=== PATIENT | male | born 1965 ===

== ENCOUNTER 2016-12-21 13:23 | Observation (INO) | payer MEDICAID ==
[2016-12-21] MEDS ORDERED: Morphine 2 mg/ml ISec IVP STA (14:13)
[2016-12-21 14:45] LABS: BASO # 0.01 K/mm3 (0.0-2.0); BASO % 0.2 % (0.0-3.0); EOS # 0.1 (0.0-0.7); EOS % 1.7 % (1.5-5.0); GRAN # 4.55 (1.4-6.5); GRAN % 69.5 % (50.0-68.0); HEMOGLOBIN 14.1 gm/dL (14.0-18.0); LYMPH # 1.4 (1.2-3.4); LYMPH % 21.4 % (22.0-35.0); MEAN CELL VOLUME 91.1 fL (80.0-105.0); MEAN CORPUSCULAR HEMOGLOBIN 29.7 pg (25.0-35.0); MEAN CORPUSCULAR HGB CONC 32.6 g/dl (31.0-37.0); MEAN PLATELET VOLUME 11.1 fl (7.0-11.0); MONO # 0.5 (0.1-0.6); MONO % 7.2 % (1.0-6.0); PLATELET COUNT 172 10^3/uL (120.0-450.0); RBC 4.74 10^6/uL (3.5-6.1); RED CELL DISTRIBUTION WIDTH 13.4 % (11.5-14.5); WHITE BLOOD COUNT 6.5 10^3/ul (4.5-11.0)
--- NOTE | 2016-12-21 14:52 | ED PDOC ---
Arrival/HPI - General Chief Complaint: Upper Extremity Problem/Injury Time Seen by Provider: 12/21/16 13:53 Historian: Patient, Family - History of Present Illness Narrative History of Present Illness (Text): 12/21/16 14:05 Greg Cardona is a 51 year old male, whose past medical history includes hypertension, hypercholesterolema, and borderline diabetes mellitus, who presents to the Emergency department complaining of left shoulder pain since last night. Patient reports that he was showering when he suddenly felt dizzy and experienced a syncopal episode. He denies hitting his head upon the fall. He notes having a headache and began having chest pain this morning. Patient denies any shortness of breath, headache, nausea, vomiting, diarrhea, fever, chills, cough, visual changes, tongue biting, head injury or other complaints. PMD: Dr. Ruelas Time/Duration: Other (last night) Symptom Onset: Sudden Symptom Course: Unchanged Activities at Onset: Light (showering) Modifying Factors (Text): pain when rising left arm Context: Home Associated Symptoms (Text): headache and chest pain since this morning Past Medical History - Provider Review Nursing Documentation Reviewed: Yes - Infectious Disease Hx of Infectious Diseases: None - Cardiac Hx Cardiac Disorders: Yes Hx Hypertension: Yes - Pulmonary Hx Respiratory Disorders: No - Neurological Hx Neurological Disorder: Yes - HEENT Hx HEENT Disorder: No - Renal Hx Renal Disorder: No - Endocrine/Metabolic Hx Endocrine Disorders: No - Hematological/Oncological Hx Blood Disorders: No Hx AIDS: No - Integumentary Hx Dermatological Disorder: No - Musculoskeletal/Rheumatological Hx Musculoskeletal Disorders: Yes Hx Arthritis: Yes - Gastrointestinal Hx Gastrointestinal Disorders: No - Genitourinary/Gynecological Hx Genitourinary Disorders: No - Psychiatric Hx Psychophysiologic Disorder: No Hx Substance Use: No - Surgical History Hx Cataract Extraction: Yes (unknown year) - Anesthesia Hx Anesthesia: Yes Hx Anesthesia Reactions: No Hx Malignant Hyperthermia: No - Suicidal Assessment Feels Threatened In Home Enviroment: No Family/Social History - Physician Review Nursing Documentation Reviewed: Yes Family/Social History: Unknown Family HX Smoking Status: Never Smoked Hx Alcohol Use: No Hx Substance Use: No Allergies/Home Meds Allergies/Adverse Reactions: Allergies No Known Allergies Allergy (Verified 12/21/16 13:46) Home Medications: Home Meds Medication Instructions Recorded Confirmed Meclizine [Meclizine*] 25 mg PO TID 04/22/15 12/21/16 Lisinopril 20 mg PO DAILY 09/23/15 12/21/16 Atorvastatin [Lipitor] 20 mg PO HS 06/10/16 12/21/16 Butalb/Acetaminophen/Caffeine 1 cap PO Q6 PRN 06/10/16 12/21/16 [Zebutal 50-325-40 mg Capsule] Metoprolol Tartrate [Lopressor] 50 mg PO BID 06/10/16 12/21/16 Omeprazole 20 mg PO DAILY 06/10/16 12/21/16 Aspirin 81 mg PO DAILY 07/25/16 12/21/16 Review of Systems - Physician Review All systems were reviewed & negative as marked: Yes - Review of Systems Constitutional: Normal. absent: Fevers Eyes: absent: Vision Changes Respiratory: absent: SOB Cardiovascular: Chest Pain (since this morning), Syncope (last night while showering) Gastrointestinal: Normal. absent: Abdominal Pain, Diarrhea, Nausea, Vomiting Genitourinary Male: Normal Musculoskeletal: Other (left shoulder pain). absent: Back Pain Skin: Other (left shoulder bruise) Neurological: Headache, Dizziness. absent: Speech Changes Endocrine: Normal. absent: Diaphoresis Hemo/Lymphatic: Normal Psychiatric: Normal Physical Exam Vital Signs Reviewed: Yes Vital Signs Temp Pulse Resp BP Pulse Ox 12/21/16 16:04 65 18 142/86 97 12/21/16 13:51 98.0 F 70 18 150/104 H 96 Temperature: Afebrile Blood Pressure: Hypertensive Pulse: Regular Respiratory Rate: Normal Appearance: Positive for: Well-Appearing, Non-Toxic, Comfortable Pain Distress: None Mental Status: Positive for: Alert and Oriented X 3 - Systems Exam Head: Present: Atraumatic, Normocephalic Pupils: Present: PERRL Extroacular Muscles: Present: EOMI Conjunctiva: Present: Normal Mouth: Present: Moist Mucous Membranes Pharnyx: Present: Normal. No: ERYTHEMA, EXUDATE, TONSILS ENLARGED Neck: Present: Normal Range of Motion Respiratory/Chest: Present: Clear to Auscultation, Good Air Exchange. No: Respiratory Distress, Accessory Muscle Use Cardiovascular: Present: Regular Rate and Rhythm, Normal S1, S2. No: Murmurs Abdomen: Present: Normal Bowel Sounds. No: Tenderness, Distention, Peritoneal Signs Upper Extremity: Present: Other (There is a pressure erythema in the anterior L shoulder with tenderness laterally). No: Cyanosis, Edema Lower Extremity: Present: Normal Inspection. No: Edema Neurological: Present: GCS=15, CN II-XII Intact, Speech Normal Skin: Present: Warm, Dry, Normal Color. No: Rashes Psychiatric: Present: Alert, Oriented x 3, Normal Insight, Normal Concentration Medical Decision Making ED Course and Treatment: 12/21/16 14:05 Impression: 51 year old male with left shoulder pain and one syncopal episode. Differential Diagnosis included but are not limited to: syncope vs. vertigo / shoulder sprain vs fx / muscular vs acs Plan: -- EKG -- CXR -- Left shoulder x- ray -- Urinalysis -- Labs -- Morphine -- Reassess and disposition Progress notes: 12/21/16 16:47 EKG: NSR @ 64; no ST/T changes; normal intervals; normal axis. Patient with noted history with multiple risk factors for ACS. EKG is unremarkable and first set of CE is negative. Will need further observation on tele for evaluation and treatment of syncope and chest pain. X-ray shows no shoulder fx. - Lab Interpretations Lab Results: 12/21/16 14:25 12/21/16 14:25 Lab Results 12/21/16 14:50: Urine Color Yellow, Urine Appearance Clear, Urine pH 6.0, Ur Specific [place] 1.025, Urine Protein Negative, Urine Glucose (UA) Negative, Urine Ketones Negative, Urine Blood Negative, Urine Nitrate Negative, Urine Bilirubin Negative, Urine Urobilinogen 0.2, Ur Leukocyte Esterase Negative 12/21/16 14:25: PT 10.2, INR 0.94, APTT 28.2 12/21/16 14:25: Sodium 144, Potassium 3.8, Chloride 105, Carbon Dioxide 29, Anion Gap 14, BUN 19, Creatinine 0.9, Est GFR ( Amer) > 60, Est GFR (Non- Af Amer) > 60, Random Glucose 90, Calcium 9.5, Magnesium 2.1, Total Bilirubin 0.5, AST 24, ALT 32, Alkaline Phosphatase 91, Lactate Dehydrogenase 446, Total Creatine Kinase 220, Troponin I < 0.01, Total Protein 7.8, Albumin 4.1, Globulin 3.7, Albumin/Globulin Ratio 1.1, Lipase 44 12/21/16 14:25: WBC 6.5, RBC 4.74, Hgb 14.1, Hct 43.2, MCV 91.1, MCH 29.7, MCHC 32.6, RDW 13.4, Plt Count 172, MPV 11.1 H, Gran % 69.5 H, Lymph % (Auto) 21.4 L , Marion % (Auto) 7.2 H, Eos % (Auto) 1.7, Baso % (Auto) 0.2, Gran # 4.55, Lymph # 1.4, Marion # 0.5, Eos # 0.1, Baso # 0.01 I have reviewed the lab results: Yes - RAD Interpretation Radiology Orders: 12/21/16 14:08 CHEST TWO VIEWS (PA/LAT) [RAD] Stat 12/21/16 14:13 SHOULDER LEFT [RAD] Stat - Medication Orders Current Medication Orders: Discontinued Medications Morphine Sulfate (Morphine) 2 mg IVP STAT STA Stop: 12/21/16 14:14 Last Admin: 12/21/16 14:35 Dose: 2 mg - Scribe Statement The provider has reviewed the documentation as recorded by the Scribe 12/21/2016 Britt Galdamez All medical record entries made by the Scribe were at my direction and personally dictated by me. I have reviewed the chart and agree that the record accurately reflects my personal performance of the history, physical exam, medical decision making, and the department course for this patient. I have also personally directed, reviewed, and agree with the discharge instructions and disposition. Disposition/Present on Arrival - Present on Arrival Any Indicators Present on Arrival: No History of DVT/PE: No History of Uncontrolled Diabetes: No Urinary Catheter: No History of Decub. Ulcer: No History Surgical Site Infection Following: None - Disposition Have Diagnosis and Disposition been Completed?: Yes Diagnosis: Chest pain, Syncope Disposition: HOSPITALIZED Disposition Time: 16:05 Patient Plan: Observation, Telemetry Condition: FAIR
[2016-12-21 14:56] LABS: ALB/GLOB RATIO 1.1 (1.1-1.8); ALBUMIN 4.1 g/dL (3.0-4.8); ALT/SGPT 32 U/L (7-56); AST/SGOT 24 U/L (15-59); BLOOD UREA NITROGEN 19 mg/dL (7-21); CALCIUM 9.5 mg/dL (8.4-10.5); GFR AFRICAN-AMERICAN > 60; GFR NON-AFRICAN AMERICAN > 60; INR 0.94 (0.93-1.08); LIPASE 44 U/L (23-300); MAGNESIUM 2.1 mg/dL (1.7-2.2); PARTIAL THROMBOPLASTIN TIME 28.2 Seconds (23.7-30.8); PROTHROMBIN TIME 10.2 Seconds (9.9-11.8)
[2016-12-21 15:36] LABS: TROPONIN I < 0.01 ng/mL
[2016-12-21 15:43] LABS: URINE BILIRUBIN NEGATIVE (NEGATIVE); URINE BLOOD NEGATIVE (NEGATIVE); URINE GLUCOSE (UA) NEGATIVE (NEGATIVE); URINE LEUKOCYTE ESTERASE NEGATIVE Leu/uL (NEGATIVE); URINE NITRATE NEGATIVE (NEGATIVE); URINE PROTEIN NEGATIVE mg/dL (<30 mg/dL); URINE UROBILINOGEN 0.2 E.U./dL (<1 E.U./dL)
[2016-12-21 15:47] LABS: URINE APPEARANCE CLEAR (CLEAR); URINE COLOR YELLOW (YELLOW)
--- NOTE | 2016-12-21 17:48 | CP.PCM.HP ---
<MasoudDemetriushussein - Last Filed: 12/21/16 19:18> History of Present Illness - History of Present Illness History of Present Illness: This patient is a 51 year old male who presented the ER complaining of intermittent chest pain and left shoulder pain he stated began "a few days". The patient stated that while he was taking a shower he began to get dizzy, fell , and hit his shoulder. Patient stated that he did not lose consciousness but when asked again stated that he did lose consciousness. Patient describes the chest pain as sharp and non radiating. He rates the chest pain 4/10 while he rates the shoulder pain an 8/10. Patient denies any biting of the toungue at the time of the event. He states that no one witnessed the fall, but he is sure that he did not hit his head. When he went for a walk this afternoon, he began to have chest pain and worsening shoulder pain which prompted him to come to the ED. He denies any difficulty breathing, abdominal pain, bowel or urinary incontinence, muscle weakness, sensory loss, N/V/D, or constipation. Patient did complain of a headache. PMH - HLD, HTN, 2 CVA, Vertigo, Hydrocephaly w/ TRENCH DIGGER shunt. PSH - Hernia repair, and ankle surgery (1971) Allergies - NKDA Social - Denies Tobacco, illicit drugs, and alcohol. Patient is currently unemployed. FamHx - Denies Present on Admission - Present on Admission Any Indicators Present on Admission: No Review of Systems - Review of Systems All systems: reviewed and no additional remarkable complaints except - Cardiovascular Cardiovascular: As Per HPI - Respiratory Respiratory: As Per HPI - Gastrointestinal Gastrointestinal: As Per HPI - Musculoskeletal Additional comments: Shoulder pain Past Patient History - Infectious Disease Hx of Infectious Diseases: None - Past Medical History & Family History Past Medical History?: Yes - Past Social History Smoking Status: Never Smoked - CARDIAC Hx Cardiac Disorders: Yes Hx Hypertension: Yes - PULMONARY Hx Respiratory Disorders: No - NEUROLOGICAL Hx Neurological Disorder: Yes - HEENT Hx HEENT Problems: No - RENAL Hx Chronic Kidney Disease: No - ENDOCRINE/METABOLIC Hx Endocrine Disorders: No - HEMATOLOGICAL/ONCOLOGICAL Hx Blood Disorders: No Hx AIDS: No - INTEGUMENTARY Hx Dermatological Problems: No - MUSCULOSKELETAL/RHEUMATOLOGICAL Hx Musculoskeletal Disorders: Yes Hx Arthritis: Yes - GASTROINTESTINAL Hx Gastrointestinal Disorders: No - GENITOURINARY/GYNECOLOGICAL Hx Genitourinary Disorders: No - PSYCHIATRIC Hx Psychophysiologic Disorder: No Hx Substance Use: No - SURGICAL HISTORY Hx Cataract Extraction: Yes (unknown year) - ANESTHESIA Hx Anesthesia: Yes Hx Anesthesia Reactions: No Hx Malignant Hyperthermia: No Meds Allergies/Adverse Reactions: Allergies Allergy/AdvReac Type Severity Reaction Status Date / Time No Known Allergies Allergy Verified 12/21/16 13:46 Physical Exam - Constitutional Appears: Well, No Acute Distress - Head Exam Head Exam: ATRAUMATIC, NORMOCEPHALIC - Eye Exam Eye Exam: EOMI - Neck Exam Neck exam: Negative for: Lymphadenopathy - Respiratory Exam Respiratory Exam: Clear to Auscultation Bilateral, NORMAL BREATHING PATTERN. absent: Accessory Muscle Use, Decreased Breath Sounds, Rales, Rhonchi, Wheezes, Stridor - Cardiovascular Exam Cardiovascular Exam: RRR, +S1, +S2. absent: JVD, +S4, Systolic Murmur Additional comments: NO Carotid Bruit. Chest is tender to palpation - GI/Abdominal Exam GI & Abdominal Exam: Normal Bowel Sounds, Soft. absent: Tenderness - Extremities Exam Additional comments: Diffuse Shoulder pain. Tender to palpation at the AC joint and [place]romian. Loss of ROM and Pain with Internal rotation, flexion, and abduction. - Neurological Exam Neurological exam: Alert, CN II-XII Intact, Oriented x3 Results - Vital Signs Recent Vital Signs: Last Vital Signs Temp 98.0 F 12/21/16 13:51 Pulse 65 12/21/16 16:04 Resp 18 12/21/16 16:04 BP 142/86 12/21/16 16:04 Pulse Ox 97 12/21/16 16:04 - Labs Result Diagrams: 12/21/16 14:25 12/21/16 14:25 Assessment & Plan - Assessment and Plan (Free Text) Assessment: 51 year old male who presented with left shoulder pain and chest pain s/p dizziness and syncope. CXR on admission showed elevated left hemidiaphragm Plan: 1. Chest Pain -Serial EKG -Chest X-Ray -Rib Series B/L -Serial Troponins -Cardio Consult -CBC/CMP -Percocet -CT of Chest Abd 2. Vertigo with possible syncopal episode vs CVA vs Seizure (unlikely) -Head CT -Neuro Consult -HgbA1C -UDS -Q4 Neurochecks -Lipid panel 3. Shoulder Pain -Xray -Percocet -PT Miriam Meredith. PGY 1 Case seen, discussed, and reviewed with Attending. - Date & Time Date: 12/21/16 Time: 05:45 <Eli Warner - Last Filed: 12/23/16 06:02> Results - Vital Signs Recent Vital Signs: Last Vital Signs Temp 98.2 F 12/22/16 17:35 Pulse 64 12/22/16 17:35 Resp 16 12/22/16 17:35 BP 135/95 H 12/22/16 17:35 Pulse Ox 94 L 12/22/16 06:00 - Labs Result Diagrams: 12/22/16 07:46 12/22/16 07:46 Labs: Laboratory Results - last 24 hr 12/22/16 12/22/16 12/22/16 07:46 07:46 07:46 WBC 5.4 RBC 4.69 Hgb 14.1 Hct 42.6 MCV 90.8 MCH 30.1 MCHC 33.1 RDW 13.6 Plt Count 151 MPV 11.1 H Gran % 64.5 Lymph % (Auto) 25.3 Edgar % (Auto) 8.1 H Eos % (Auto) 1.7 Baso % (Auto) 0.4 Gran # 3.49 Lymph # 1.4 Edgar # 0.4 Eos # 0.1 Baso # 0.02 Sodium 141 Potassium 3.7 Chloride 102 Carbon Dioxide 31 Anion Gap 12 BUN 18 Creatinine 0.9 Est GFR ( Amer) > 60 Est GFR (Non-Af Amer) > 60 Random Glucose 90 Calcium 8.9 Total Bilirubin 0.7 AST 21 ALT 27 Alkaline Phosphatase 73 Troponin I Total Protein 7.0 Albumin 3.7 Globulin 3.3 Albumin/Globulin Ratio 1.1 Triglycerides 152 Cholesterol 169 LDL Cholesterol Direct 120 HDL Cholesterol 31 TSH 3rd Generation 1.29 12/22/16 10:00 WBC RBC Hgb Hct MCV MCH MCHC RDW Plt Count MPV Gran % Lymph % (Auto) Edgar % (Auto) Eos % (Auto) Baso % (Auto) Gran # Lymph # Edgar # Eos # Baso # Sodium Potassium Chloride Carbon Dioxide Anion Gap BUN Creatinine Est GFR ( Amer) Est GFR (Non-Af Amer) Random Glucose Calcium Total Bilirubin AST ALT Alkaline Phosphatase Troponin I < 0.01 Total Protein Albumin Globulin Albumin/Globulin Ratio Triglycerides Cholesterol LDL Cholesterol Direct HDL Cholesterol TSH 3rd Generation
[2016-12-21] MEDS ORDERED: Oxycodone/Acetaminophen 2.5/325 mg Tab PO PRN (18:57)
[2016-12-21 19:41] VITALS: BMI 33.4
[2016-12-21] MEDS ORDERED: Pneumococcal 23-Valent Vaccine IM ONE (19:41)
[2016-12-21] MEDS ORDERED: Naproxen 550 mg Tab PO STA (20:51)
[2016-12-21] MEDS ORDERED: Naproxen 550 mg Tab PO SCH (21:00)
[2016-12-21 22:23] LABS: BARBITURATES, UR POSITIVE (NEGATIVE); BENZODIAZEPINES, UR NEGATIVE (NEGATIVE); OPIATES, UR POSITIVE (NEGATIVE); PHENCYCLIDINE, UR NEGATIVE (NEGATIVE)
[2016-12-22] MEDS ORDERED: Naproxen 550 mg Tab PO STA (00:31)
[2016-12-22 06:58] VITALS: O2SAT 94
[2016-12-22] MEDS ORDERED: Pantoprazole 20 mg EC Tab PO SCH (07:30)
[2016-12-22 07:58] LABS: BASO # 0.02 K/mm3 (0.0-2.0); BASO % 0.4 % (0.0-3.0); EOS # 0.1 (0.0-0.7); EOS % 1.7 % (1.5-5.0); GRAN # 3.49 (1.4-6.5); GRAN % 64.5 % (50.0-68.0); HEMOGLOBIN 14.1 gm/dL (14.0-18.0); LYMPH # 1.4 (1.2-3.4); LYMPH % 25.3 % (22.0-35.0); MEAN CELL VOLUME 90.8 fL (80.0-105.0); MEAN CORPUSCULAR HEMOGLOBIN 30.1 pg (25.0-35.0); MEAN CORPUSCULAR HGB CONC 33.1 g/dl (31.0-37.0); MEAN PLATELET VOLUME 11.1 fl (7.0-11.0); MONO # 0.4 (0.1-0.6); MONO % 8.1 % (1.0-6.0); PLATELET COUNT 151 10^3/uL (120.0-450.0); RBC 4.69 10^6/uL (3.5-6.1); RED CELL DISTRIBUTION WIDTH 13.6 % (11.5-14.5); WHITE BLOOD COUNT 5.4 10^3/ul (4.5-11.0)
[2016-12-22 08:30] LABS: ALB/GLOB RATIO 1.1 (1.1-1.8); ALBUMIN 3.7 g/dL (3.0-4.8); ALT/SGPT 27 U/L (7-56); AST/SGOT 21 U/L (15-59); BLOOD UREA NITROGEN 18 mg/dL (7-21); CALCIUM 8.9 mg/dL (8.4-10.5); GFR AFRICAN-AMERICAN > 60; GFR NON-AFRICAN AMERICAN > 60; HDL CHOLESTEROL 31 mg/dL (29-60); LDL CHOLESTEROL 120 mg/dL (0-129)
[2016-12-22] MEDS ORDERED: Naproxen 550 mg Tab PO SCH (10:00)
--- NOTE | 2016-12-22 10:08 | RAD ---
PROCEDURE: Radiographs of the Left Shoulder HISTORY: L shoulder pain s/p fall COMPARISON: No prior. FINDINGS: BONES: No evidence of acute displaced fracture nor dislocation. The osseous structures intact. Minimal degenerative changes left acromioclavicular joint. JOINTS: Normal. Glenohumeral and acromioclavicular joints preserved. No osteoarthritis. SOFT TISSUES: No abnormal soft calcifications. OTHER FINDINGS: Elevation left hemidiaphragm with vague opacification in the left lower lobe. Rule out eventration and atelectasis. Left effusion not excluded. IMPRESSION: No acute fractures. 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 Elevation left hemidiaphragm with vague opacification in the left lower lobe. Rule out eventration and atelectasis. Left effusion not excluded. Note this report placed in PA review folder for followup.
--- NOTE | 2016-12-22 10:58 | CON ---
DATE: 12/21/2016 The patient is in room 265, bed 1. This consult to being done on behalf of *------*. REASON FOR CONSULTATION: Chest pain. HISTORY OF PRESENT ILLNESS: The patient known hypertensive who has previously CVA and had hydrocephalic with CONTAINER WASHER MACHINE shunt *-----* that she had 10 minutes episode of sharp left chest pain, which was radiating to left shoulder. The patient's shoulder pain is musculoskeletal, it was very tender shoulder and he cannot lift arm all away, it became more painful. The patient denies any history of exertional chest pain. The patient at present had no chest pain, but still has shoulder pain with movement. PAST MEDICAL HISTORY: Positive for hypertension, CVA, vertigo, hydrocephalic CONTAINER WASHER MACHINE shunt, he also has hernia repair and ankle surgery. ALLERGY: DENIES ANY ALLERGIES. PERSONAL HISTORY: Denies smoking or drinking. FAMILY HISTORY: Not significant. MEDICATIONS: The patient's home medications including omeprazole 20 daily, Lopressor 50 b.i.d., meclozine 25 t.i.d., lisinopril 20 mg daily, atorvastatin 20 daily, aspirin 81 mg daily. REVIEW OF SYSTEMS: All other system reviewed. Positives mentioned history, otherwise negative. PHYSICAL EXAMINATION VITAL SIGNS: Blood pressure 142/86, respirations 18, pulse 65, temperature 98. HEENT: Head is normocephalic. Eyes; pupil normal. Conjunctivae normal. Nose and throat normal. NECK: No JVP. Carotid equal. Thorax AP diameter normal. LUNGS: Clear. CARDIOVASCULAR: S1 and S2. ABDOMEN: Soft, nontender. No rebound. No guarding. Bowel sounds normal. EXTREMITIES: The patient has painful tendon. Left shoulder with local tenderness of the shoulder joint. It is painful to movement. Legs have no clubbing, no cyanosis. LABORATORY DATA: WBC 6.5, hemoglobin 14.1, hematocrit 43.2, platelet 172. Sodium 144, potassium 3.8, BUN 19, creatinine 0.9. Calcium, magnesium, AST, ALT normal. Troponin less than 0.01. Total protein 7.8. Albumin 4.1. The patient's chest x-ray showed elevation of left diaphragm, otherwise lungs are clear. EKG showed regular sinus rhythm. Nonspecific ST-T changes. DIAGNOSES: Chest pain in atypical, tender shoulder for musculoskeletal pain and history of hypertension. PLAN: We will put the patient on Naprosyn 550 b.i.d. The patient already getting aspirin 81 mg daily, meclizine 25 t.i.d., Lipitor 20 mg daily, metoprolol 50 b.i.d., Protonix 20 b.i.d., and the patient can do *------* outpatient. We will check TSH and lipid profile. We will follow with you. Kori Hardy MD
--- NOTE | 2016-12-22 12:30 | RAD ---
HISTORY: chest pain COMPARISON: No prior TECHNIQUE: Chest PA and lateral FINDINGS: LUNGS: There is a opacification in the left lung base that may represent eventration of the left hemidiaphragm however possibility of left lower lobe consolidation and/or subpulmonic effusion cannot be excluded. Followup CT scan of the chest is recommended. PLEURA: No as above. No evidence of pneumothorax. CARDIOVASCULAR: Heart size is difficult to assess due to silhouetting left cardiac border however heart appears enlarged. OSSEOUS STRUCTURES: No significant abnormalities. VISUALIZED UPPER ABDOMEN: Normal. OTHER FINDINGS: None. IMPRESSION: There is a opacification in the left lung base that may represent eventration of the left hemidiaphragm however possibility of left lower lobe consolidation and/or subpulmonic effusion cannot be excluded. Followup CT scan of the chest is recommended. Findings discussed with 2 Be Albert at approximately 12:25 p.m. with written down and read back verification.
--- NOTE | 2016-12-22 12:30 | CT ---
PROCEDURE: CT scan of the brain dated 12/22/2016. HISTORY: Dizziness and syncope in a patient with METAL MINER BLASTING shunt tube. COMPARISON: No prior study available for comparison. TECHNIQUE: Contiguous helical/transaxial computed tomography images were obtained through the head/brain without intravenous contrast. Radiation dose: Total exam DLP = 774.23 MGy-cm. This CT exam was performed using one or more of the following dose reduction techniques: Automated exposure control, adjustment of the mA and/or kV according to patient size, and/or use of iterative reconstruction technique. . FINDINGS: The current study reveals shunt tubing which enters a right frontal benson hole and extends through the right frontal lobe and terminating across midline the level of the posterior aspect left frontal horn. . There is a small reservoir adjacent to the outer table of the frontal calvarium at the level of the benson hole however the shunt tubing appears to terminate very short distance from the reservoir and presumably has been removed or disconnected. Clinical correlation with history is recommended. There is marked dilatation of the 3rd and lateral ventricles however normal-appearing 4th ventricle. 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 There is marked on white matter volume loss due to the chronic on hydrocephalus. No acute parenchymal, subarachnoid or extra-axial hemorrhage. No acute calvarial fractures. Minimal mucosal thickening both maxillary antra right greater than left. Impression: Marked dilatation 3rd and lateral ventricles with normal-appearing 4th ventricle. 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 Clinic correlation recommended. Apparent disconnected METAL MINER BLASTING shunt tube with residual shunt tubing entering a right frontal benson hole and extending through the right frontal lobe, right frontal horn terminating along the posterior aspect left frontal horn . There is a small reservoir along the under surface of the benson hole however no evidence of subcutaneous shunt tubing seen. Clinical correlation with surgical history recommended. Significant white matter volume loss. No evidence of acute intracranial hemorrhage. Findings discussed with 2 Be Albert at approximately 12:25 p.m. with written down and read back verification.
[2016-12-22 17:35] VITALS: BP 135/95; PULSE 64; RESP 16; TEMP 98.2
--- NOTE | 2016-12-22 20:03 | CP.PCM.DIS ---
<Sandra Meredith - Last Filed: 12/22/16 20:03> Provider - Provider Date of Admission: 12/21/16 16:09 Attending physician: Kori Paul MD Primary care physician: Rubens Ruelas Consults: Cardio - Dr. Soriano Neuro - Dr. Griffith Neuro Surg - Dr. Moran Time Spent in preparation of Discharge (in minutes): 35 Hospital Course - Lab Results Lab Results: Most Recent Lab Values WBC 5.4 10^3/ul (4.5-11.0) 12/22/16 07:46 RBC 4.69 10^6/uL (3.5-6.1) 12/22/16 07:46 Hgb 14.1 gm/dL (14.0-18.0) 12/22/16 07:46 Hct 42.6 % (42.0-52.0) 12/22/16 07:46 MCV 90.8 fL (80.0-105.0) 12/22/16 07:46 MCH 30.1 pg (25.0-35.0) 12/22/16 07:46 MCHC 33.1 g/dl (31.0-37.0) 12/22/16 07:46 RDW 13.6 % (11.5-14.5) 12/22/16 07:46 Plt Count 151 10^3/uL (120.0-450.0) 12/22/16 07:46 MPV 11.1 fl (7.0-11.0) H 12/22/16 07:46 Gran % 64.5 % (50.0-68.0) 12/22/16 07:46 Lymph % (Auto) 25.3 % (22.0-35.0) 12/22/16 07:46 [place] % (Auto) 8.1 % (1.0-6.0) H 12/22/16 07:46 Eos % (Auto) 1.7 % (1.5-5.0) 12/22/16 07:46 Baso % (Auto) 0.4 % (0.0-3.0) 12/22/16 07:46 Gran # 3.49 (1.4-6.5) 12/22/16 07:46 Lymph # 1.4 (1.2-3.4) 12/22/16 07:46 [place] # 0.4 (0.1-0.6) 12/22/16 07:46 Eos # 0.1 (0.0-0.7) 12/22/16 07:46 Baso # 0.02 K/mm3 (0.0-2.0) 12/22/16 07:46 PT 10.2 Seconds (9.9-11.8) 12/21/16 14:25 INR 0.94 (0.93-1.08) 12/21/16 14:25 APTT 28.2 Seconds (23.7-30.8) 12/21/16 14:25 Sodium 141 mmol/L (132-148) 12/22/16 07:46 Potassium 3.7 mmol/L (3.6-5.0) 12/22/16 07:46 Chloride 102 mmol/L (95-110) 12/22/16 07:46 Carbon Dioxide 31 mmol/L (21-33) 12/22/16 07:46 Anion Gap 12 (10-20) 12/22/16 07:46 BUN 18 mg/dL (7-21) 12/22/16 07:46 Creatinine 0.9 mg/dL (0.5-1.4) 12/22/16 07:46 Est GFR ( Amer) > 60 12/22/16 07:46 Est GFR (Non-Af Amer) > 60 12/22/16 07:46 Random Glucose 90 mg/dL (70-110) 12/22/16 07:46 Calcium 8.9 mg/dL (8.4-10.5) 12/22/16 07:46 Magnesium 2.1 mg/dL (1.7-2.2) 12/21/16 14:25 Total Bilirubin 0.7 mg/dL (0.2-1.3) 12/22/16 07:46 AST 21 U/L (15-59) 12/22/16 07:46 ALT 27 U/L (7-56) 12/22/16 07:46 Alkaline Phosphatase 73 U/L (38-133) 12/22/16 07:46 Lactate Dehydrogenase 446 U/L (333-699) 12/21/16 14:25 Total Creatine Kinase 220 U/L (35-230) 12/21/16 14:25 Troponin I < 0.01 ng/mL 12/22/16 10:00 Total Protein 7.0 g/dL (5.8-8.3) 12/22/16 07:46 Albumin 3.7 g/dL (3.0-4.8) 12/22/16 07:46 Globulin 3.3 gm/dL 12/22/16 07:46 Albumin/Globulin Ratio 1.1 (1.1-1.8) 12/22/16 07:46 Triglycerides 152 mg/dL (35-160) 12/22/16 07:46 Cholesterol 169 mg/dL (130-200) 12/22/16 07:46 LDL Cholesterol Direct 120 mg/dL (0-129) 12/22/16 07:46 HDL Cholesterol 31 mg/dL (29-60) 12/22/16 07:46 Lipase 44 U/L (23-300) 12/21/16 14:25 TSH 3rd Generation 1.29 mIU/mL (0.46-4.68) 12/22/16 07:46 Urine Color Yellow (YELLOW) 12/21/16 14:50 Urine Appearance Clear (CLEAR) 12/21/16 14:50 Urine pH 6.0 (4.7-8.0) 12/21/16 14:50 Ur Specific [place] 1.025 (1.005-1.035) 12/21/16 14:50 Urine Protein Negative mg/dL (<30 mg/dL) 12/21/16 14:50 Urine Glucose (UA) Negative mg/dL (NEGATIVE) 12/21/16 14:50 Urine Ketones Negative mg/dL (NEGATIVE) 12/21/16 14:50 Urine Blood Negative (NEGATIVE) 12/21/16 14:50 Urine Nitrate Negative (NEGATIVE) 12/21/16 14:50 Urine Bilirubin Negative (NEGATIVE) 12/21/16 14:50 Urine Urobilinogen 0.2 E.U./dL (<1 E.U./dL) 12/21/16 14:50 Ur Leukocyte Esterase Negative Jeancarlos/uL (NEGATIVE) 12/21/16 14:50 Urine Opiates Screen Positive (NEGATIVE) H 12/21/16 21:50 Urine Methadone Screen Negative (NEGATIVE) 12/21/16 21:50 Ur Barbiturates Screen Positive (NEGATIVE) H 12/21/16 21:50 Ur Phencyclidine Scrn Negative (NEGATIVE) 12/21/16 21:50 Ur Amphetamines Screen Negative (NEGATIVE) 12/21/16 21:50 U Benzodiazepines Scrn Negative (NEGATIVE) 12/21/16 21:50 U Oth Cocaine Metabols Negative (NEGATIVE) 12/21/16 21:50 U Cannabinoids Screen Negative (NEGATIVE) 12/21/16 21:50 - Hospital Course Hospital Course: This is a 51 year old male with a PMH of CVA, hydrocephaly w/ HEAD CD REACTOR OPERATOR shunt and Hypertension who was admitted for left shoulder pain and chest pain which was reproducible s/p dizziness and syncope. Patients shoulder pain is of musculoskeletal etiology. Shoulder X-ray showed no fractures. Cardio was consulted for chest pain. Neuro was consulted for Syncope. Patients troponins were negative and EKG was normal. Chest X-ray showed elevated left ihsan diaphragm. Neurosurgery was consulted due to Head CT findings shown below. Neurosurgery (Dr. Moran) talked with the patient and they agreed to follow up at his office within 1-2 days. Patient was cleared by cardio and neuro. Patient eloped before official discharge. They have the contact information for Dr. Moran. Head CT: Marked dilation of 3rd and lateral ventricles with normal appearing 4th ventricle. 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 Patient seen, examined, and discussed w/ attending Sandra Meredith PGY-1 Discharge Exam - Head Exam Head Exam: ATRAUMATIC, NORMOCEPHALIC - Eye Exam Eye Exam: EOMI - ENT Exam ENT Exam: Mucous Membranes Moist - Respiratory Exam Respiratory Exam: Clear to PA & Lateral, NORMAL BREATHING PATTERN. absent: Decreased Breath Sounds, Rales, Rhonchi, Wheezes, Respiratory Distress, Stridor - Cardiovascular Exam Cardiovascular Exam: +S1, +S2. absent: JVD, RRR - GI/Abdominal Exam GI & Abdominal Exam: Normal Bowel Sounds, Soft. absent: Tenderness - Neurological Exam Neurological exam: Alert, Oriented x3 - Psychiatric Exam Psychiatric exam: Normal Affect, Normal Mood Discharge Plan - Follow Up Plan Condition: FAIR Disposition: AGAINST MEDICAL ADVICE Instructions: Chest Pain (ED), Syncope (ED) Referrals: Rubens Ruelas MD [Primary Care Provider] - <Nikhil Muiñz - Last Filed: 12/22/16 21:57> Provider - Provider Date of Admission: 12/21/16 16:09 Attending physician: Kori Paul MD Primary care physician: [facility] Course - Lab Results Lab Results: Most Recent Lab Values WBC 5.4 10^3/ul (4.5-11.0) 12/22/16 07:46 RBC 4.69 10^6/uL (3.5-6.1) 12/22/16 07:46 Hgb 14.1 gm/dL (14.0-18.0) 12/22/16 07:46 Hct 42.6 % (42.0-52.0) 12/22/16 07:46 MCV 90.8 fL (80.0-105.0) 12/22/16 07:46 MCH 30.1 pg (25.0-35.0) 12/22/16 07:46 MCHC 33.1 g/dl (31.0-37.0) 12/22/16 07:46 RDW 13.6 % (11.5-14.5) 12/22/16 07:46 Plt Count 151 10^3/uL (120.0-450.0) 12/22/16 07:46 MPV 11.1 fl (7.0-11.0) H 12/22/16 07:46 Gran % 64.5 % (50.0-68.0) 12/22/16 07:46 Lymph % (Auto) 25.3 % (22.0-35.0) 12/22/16 07:46 [place] % (Auto) 8.1 % (1.0-6.0) H 12/22/16 07:46 Eos % (Auto) 1.7 % (1.5-5.0) 12/22/16 07:46 Baso % (Auto) 0.4 % (0.0-3.0) 12/22/16 07:46 Gran # 3.49 (1.4-6.5) 12/22/16 07:46 Lymph # 1.4 (1.2-3.4) 12/22/16 07:46 [place] # 0.4 (0.1-0.6) 12/22/16 07:46 Eos # 0.1 (0.0-0.7) 12/22/16 07:46 Baso # 0.02 K/mm3 (0.0-2.0) 12/22/16 07:46 PT 10.2 Seconds (9.9-11.8) 12/21/16 14:25 INR 0.94 (0.93-1.08) 12/21/16 14:25 APTT 28.2 Seconds (23.7-30.8) 12/21/16 14:25 Sodium 141 mmol/L (132-148) 12/22/16 07:46 Potassium 3.7 mmol/L (3.6-5.0) 12/22/16 07:46 Chloride 102 mmol/L (95-110) 12/22/16 07:46 Carbon Dioxide 31 mmol/L (21-33) 12/22/16 07:46 Anion Gap 12 (10-20) 12/22/16 07:46 BUN 18 mg/dL (7-21) 12/22/16 07:46 Creatinine 0.9 mg/dL (0.5-1.4) 12/22/16 07:46 Est GFR ( Amer) > 60 12/22/16 07:46 Est GFR (Non-Af Amer) > 60 12/22/16 07:46 Random Glucose 90 mg/dL (70-110) 12/22/16 07:46 Calcium 8.9 mg/dL (8.4-10.5) 12/22/16 07:46 Magnesium 2.1 mg/dL (1.7-2.2) 12/21/16 14:25 Total Bilirubin 0.7 mg/dL (0.2-1.3) 12/22/16 07:46 AST 21 U/L (15-59) 12/22/16 07:46 ALT 27 U/L (7-56) 12/22/16 07:46 Alkaline Phosphatase 73 U/L (38-133) 12/22/16 07:46 Lactate Dehydrogenase 446 U/L (333-699) 12/21/16 14:25 Total Creatine Kinase 220 U/L (35-230) 12/21/16 14:25 Troponin I < 0.01 ng/mL 12/22/16 10:00 Total Protein 7.0 g/dL (5.8-8.3) 12/22/16 07:46 Albumin 3.7 g/dL (3.0-4.8) 12/22/16 07:46 Globulin 3.3 gm/dL 12/22/16 07:46 Albumin/Globulin Ratio 1.1 (1.1-1.8) 12/22/16 07:46 Triglycerides 152 mg/dL (35-160) 12/22/16 07:46 Cholesterol 169 mg/dL (130-200) 12/22/16 07:46 LDL Cholesterol Direct 120 mg/dL (0-129) 12/22/16 07:46 HDL Cholesterol 31 mg/dL (29-60) 12/22/16 07:46 Lipase 44 U/L (23-300) 12/21/16 14:25 TSH 3rd Generation 1.29 mIU/mL (0.46-4.68) 12/22/16 07:46 Urine Color Yellow (YELLOW) 12/21/16 14:50 Urine Appearance Clear (CLEAR) 12/21/16 14:50 Urine pH 6.0 (4.7-8.0) 12/21/16 14:50 Ur Specific [place] 1.025 (1.005-1.035) 12/21/16 14:50 Urine Protein Negative mg/dL (<30 mg/dL) 12/21/16 14:50 Urine Glucose (UA) Negative mg/dL (NEGATIVE) 12/21/16 14:50 Urine Ketones Negative mg/dL (NEGATIVE) 12/21/16 14:50 Urine Blood Negative (NEGATIVE) 12/21/16 14:50 Urine Nitrate Negative (NEGATIVE) 12/21/16 14:50 Urine Bilirubin Negative (NEGATIVE) 12/21/16 14:50 Urine Urobilinogen 0.2 E.U./dL (<1 E.U./dL) 12/21/16 14:50 Ur Leukocyte Esterase Negative Jeancarlos/uL (NEGATIVE) 12/21/16 14:50 Urine Opiates Screen Positive (NEGATIVE) H 12/21/16 21:50 Urine Methadone Screen Negative (NEGATIVE) 12/21/16 21:50 Ur Barbiturates Screen Positive (NEGATIVE) H 12/21/16 21:50 Ur Phencyclidine Scrn Negative (NEGATIVE) 12/21/16 21:50 Ur Amphetamines Screen Negative (NEGATIVE) 12/21/16 21:50 U Benzodiazepines Scrn Negative (NEGATIVE) 12/21/16 21:50 U Oth Cocaine Metabols Negative (NEGATIVE) 12/21/16 21:50 U Cannabinoids Screen Negative (NEGATIVE) 12/21/16 21:50 Attending/Attestation - Attestation I have personally seen and examined this patient.: Yes I have fully participated in the care of the patient.: Yes I have reviewed all pertinent clinical information, including history, physical exam and plan: Yes Notes (Text): 12/22/16 21:56 Patient seen and examined. labs, vitals an notes reviewed. CT head reviewed. Chest pain resolved. Patient decided to sign out AMA. Agree with the plan outlined by the resident.
--- NOTE | 2016-12-23 02:40 | CON ---
DATE: 12/22/2016 HISTORY OF PRESENT ILLNESS: This is a 51-year-old male with a known history of hypertension and CVA. The patient has hydrocephalus with TEXTILE PIN WORKER shunt and the patient had left-sided chest pain and tender on the left shoulder. He came to hospital because of passing out spell. at bedside. PAST MEDICAL HISTORY: Hypertension, CVA, and TEXTILE PIN WORKER shunt. PAST SURGICAL HISTORY: Hernia repair and ankle surgery. ALLERGIES: NO KNOWN DRUG ALLERGIES. MEDICATIONS: Omeprazole, Lopressor, meclizine, and lisinopril. REVIEW OF SYSTEMS: A 10-point review of system was negative except passing out spell. PHYSICAL EXAMINATION HEENT: Normocephalic and atraumatic. NECK: Supple. NEUROLOGIC: Alert, awake and oriented to self and place. No aphasia. Cranial nerve II-XII were tested. Pupils reactive. EOMs intact. Visual field full. No facial asymmetry. Tongue midline. MOTOR:. Moves all the extremities spontaneously. Deep tendon reflexes is 1+. Both plantars are downgoing. Sensory appears intact. Cerebellar and gait, deferred. IMPRESSION: Syncope and CAT scan of the head showed third ventricle dilatation and continue present management and follow up. Bernardo Griffith MD
--- NOTE | 2016-12-23 03:49 | PN ---
DATE: 12/22/2016 Patient is in room 265, bed 1. REASON FOR CONSULTATION: Followup of chest pain. HISTORY OF PRESENT ILLNESS: The patient is a known hypertensive, with previous CVA and hydrocephalus with GENERAL NEUROLOGIST shunt. He had a 10-minute episode of sharp left-sided chest pain, which radiated to the left shoulder. The patient's shoulder pain is musculoskeletal because he has local tenderness and also it gets worse with movement of the shoulder. The patient is lying flat in bed without any chest pain or shortness of breath. The pain seems to be slightly less as compared to yesterday. PHYSICAL EXAMINATION VITAL SIGNS: Blood pressure 115/74, respirations 18, pulse 83, the patient is afebrile. HEENT: Head is normocephalic. Eyes, pupils normal, conjunctivae are normal. Nose and throat normal. NECK: JVP is low. Carotids are equal. THORAX: AP diameter is normal. CARDIOVASCULAR: S1 and S2. The patient has tenderness on the left shoulder. LUNGS: Clear. EXTREMITIES: No clubbing, no cyanosis. LABORATORY DATA: WBC 5.4, hemoglobin 14.1, hematocrit 42.6, platelets 151. Sodium 141, potassium 3.7, BUN 18, creatinine 0.9. Troponin x2 negative. TSH 1.29, normal. Cholesterol 169, LDL 120, HDL 31. DIAGNOSES: 1. Atypical chest pain, sharp chest pain. 2. Left shoulder pain, musculoskeletal. 3. History of hypertension. PLAN: I will put the patient on Naprosyn 550 b.i.d. The patient is already on aspirin, meclizine, Lipitor, metoprolol, Protonix. The patient will be discharged. We will do the stress test as an outpatient. We will follow. Kori Hardy MD
== END 2016-12-22 17:30 | disposition left against medical advice (07) ==
LOC: ED 13:23 → ERH 16:09 → 2RNO 17:35
PROVIDERS: ADMIT Internal Medicine; ATTEND Internal Medicine
DX: R07.89 Other chest pain (principal); I10 Essential (primary) hypertension; R55 Syncope and collapse; R42 Dizziness and giddiness; M25.512 Pain in left shoulder; M79.1 Myalgia; E78.5 Hyperlipidemia, unspecified; R73.03 Prediabetes; E78.00 Pure hypercholesterolemia, unspecified; G91.1 Obstructive hydrocephalus; Z98.2 Presence of cerebrospinal fluid drainage device; Z86.73 Personal history of transient ischemic attack (TIA), and cerebral infarction without residual deficits; Z79.82 Long term (current) use of aspirin
CPT/HCPCS: 36415; 70450; 71020; 73030; 80053; 80061; 80324; 80345; 80346; 80349; 80353; 80358; 80361; 81003; 82550; 83036; 83615; 83690; 83735; 83992; 84443; 84484; 85025; 85610; 85730; 96374; 99285; G0378; J2270